=== PATIENT | male | born 1960 | race Native Hawaiian/Other Pacific Islander ===

== ENCOUNTER 2016-11-19 15:13 | Day surgery (SDC) | payer MEDICAID ==
[~2016-11-19] VITALS: Ht 170.2 cm; Wt 119.9 kg
[~2016-11-19 15:13] MED LIST: AMLO5TAB22 PO; ATOR40TA PO; LISI40TA PO; LOSA50TA PO; MEDR4PAK3 PO
[2016-11-19] MEDS ORDERED: NS 1000P @30 MLS/HR (KVO) IV SCH (16:00)
[2016-11-19 16:45] VITALS: BP 142/72; PULSE 71; RESP 18; TEMP 98; O2SAT 96
[2016-11-19] MEDS ORDERED: IOHEXOL 350 MG/ML 100 ML BTL (for Cath Lab) OTHER ONE (17:10)
[2016-11-19 17:14] LABS: AUTOMATED NEUTROPHIL # 3.3 TH/MM3 (1.8-7.7); BASOPHIL % 0.8 % (0.0-2.0); EOSINOPHIL # 0.2 TH/MM3 (0-0.4); EOSINOPHIL % 3.1 % (0.0-4.0); HEMATOCRIT 35.9 % (39.0-51.0); HEMO FLAGS DIFF FINAL; LYMPH % 31.3 % (9.0-44.0); LYMPHOCYTE # 1.8 TH/MM3 (1.0-4.8); MEAN CELL VOLUME 80.8 FL (80.0-100.0); MEAN CORPUSCULAR HEMOGLOBIN 27.3 PG (27.0-34.0); MEAN CORPUSCULAR HGB CONC 33.8 % (32.0-36.0); MONO % 8.4 % (0.0-8.0); NEUT % 56.4 % (16.0-70.0); PLATELET COUNT 199 TH/MM3 (150-450); RED BLOOD COUNT 4.44 MIL/MM3 (4.50-5.90); RED CELL DISTRIBUTION WIDTH 16.1 % (11.6-17.2); WHITE BLOOD COUNT 5.8 TH/MM3 (4.0-11.0)
[2016-11-19] MEDS ORDERED: LOSA100T PO (17:17)
[2016-11-19] MEDS ORDERED: SERT-129 PO (17:17)
[2016-11-19] MEDS ORDERED: LIPI40TA PO (17:17)
[2016-11-19] MEDS ORDERED: BUPR150CR PO (17:17)
[2016-11-19] MEDS ORDERED: ZIPR1CAP8 PO (17:17)
[2016-11-19] MEDS ORDERED: BENZ0.5T PO (17:17)
[2016-11-19] MEDS ORDERED: CHLO25TA2 PO (17:17)
[2016-11-19] MEDS ORDERED: PRAZ5CAP PO (17:17)
[2016-11-19] MEDS ORDERED: HEPARIN-NS/PF INJ 500 ML ONE ×2 (17:18→17:24)
[2016-11-19] MEDS ORDERED: NITROGLYCERIN INJ 5 ML ONE (17:24)
[2016-11-19] MEDS ORDERED: MIDAZOLAM HCL 2 MG/2 ML VIAL ONE (17:24)
[2016-11-19] MEDS ORDERED: VERAPAMIL HCL 5 MG/2 ML VIAL ONE (17:24)
[2016-11-19] MEDS ORDERED: HEPARIN SODIUM - IV 10,000 UNITS/10 ML VIAL ONE (17:25)
[2016-11-19 17:27] LABS: APTT (PATIENT) 25.4 SEC (24.3-30.1); PROTHROMBIN TIME - PATIENT 10.7 SEC (9.8-11.6)
[2016-11-19 17:33] LABS: BICARBONATE 28.3 MEQ/L (21.0-32.0); POTASSIUM 3.1 MEQ/L (3.5-5.1)
--- NOTE | 2016-11-19 18:07 | CATHPROC ---
[employer] HIS Report Study Information Study Number Admission Scheduled Start Study Start [id number] Nov 19 2016 3:13PM 11/19/2016 Nov 19 2016 5:14PM [facility] Service Cardiac Catheterization Admit Source Facility Department Other [facility] - Business Teacher Physician and Clinical Staff Initial Theresa Flores Card FeederStuart Ayala RN Card Feeder Marge Eagle,ANA MARÍARMelani Other cathlab, cathlab Recorder Carin Vergara,SUPERVISOR PREPRESS TECH2 Scrub Jessica Montero,RT(R) Procedures Performed Procedure Location (Site) Vessel Name Coronary Angiograms LCA Left Coronary Coronary Angiograms RCA Right Coronary L Heart Cath Equipment Time Filter Tank Tender Helper Description Size Mfg Part Number Used/Scraped TRANSDUCER, TRUWAVE [id number] 17:39 MENDEZ [employer] Around * Used W/STOCKCOCK *[id number]-21-2.5 17:41 [employer]. NEEDLE, PERCUTANEOUS ENTRY 21G X 2.5CM Used *[id number] 17:39 [employer] PACK, CCL CUSTOM * Used *[id number] 17:39 [employer] SUPPORT, ARTERIAL ADULT 22181 Used BAND, RADIAL COMPRESSION TR [id number] 17:54 [employer] MED[employer] 29CM Used LARGE 29 *[id number] 17:39 [employer] WIRE, EXCHANGE 260CM 3MMJ 260CM Used *[id number] 17:39 NAMIC MANIFOLD, 4 PORT * Used *[id number] 17:39 [employer]COMED OMNIPAQUE, 350 MG, 150ML 150ML [id number] Used [id number] 17:39 MILES MEDICAL BLANKET,WARM AIR CCL * Used *[id number] CATHETER, FR5 OPTITORQUE [id number] 17:40 [employer] FR 5 Used RADIAL TIG 4.0 *[id number] SHEATH, FR6 TRANSRADIAL [id number] 17:39 [employer] FR 6 Used SLENDER 10CM *[id number] Equipment Model, Serial, Lot Number and Expiration Data Description Model Number Serial Number Lot Number Expiration Date NEEDLE, PERCUTANEOUS ENTRY [id number] 02-25-2020 History: Allergies Allergy Reaction No Known Allergies History: Risk Factors Family History of Hypertension Dyslipidemia Previous HI Previous Heart Failure Premature CAD Yes Yes No No No Prior Valve Prior PCI Prior CABG Surgery No No No Cerebrovascular Peripheral Artery Chronic Lung On Dialysis Diabetes Disease Disease Disease No No No No No History: Risk Factors Selection Items Obesity History: Symptoms/Diagnosis Selection Items Chest pain History: Stress Tests Stress or Imaging Studies Performed Yes Standard Exercise Stress Test No Stress Echo No Stress Test SPECT No Stress Test CMR Stress Test CMR Result Stress Test CMR Ischemia Risk/Extent Yes Positive Low Cardiac CTA Coronary Calcium Score No No History: Other Disease Selection Items Depression HTN History: Other Current Smoker No Labs Hgb (g/dl) Hct (%) RBC (MIL/MM3) WBC (l/cumm) Platelets (thousands) 11.60-17.00 35.00-51.00 4.00-5.90 4.00-11.00 150.00-450.00 12.1 35.9 4.4 5.8 199 Glucose (mg/dl) BUN (mg/dl) Creatinine (mg/dl) BUN:Creatinine (1:x) 74.00-106.00 7.00-18.00 0.50-1.30 10.00-20.00 99 26 1.2 21.7 Na (meq/l) K (meq/l) Cl (meq/l) CO2 (mmol/L) Ca (mg/dl) 136.00-145.00 3.50-5.10 98.00-107.00 21.00-32.00 8.50-10.10 137 3.1 102 28.3 9.2 PT (sec) PTT (sec) INR (PTT:PT) 9.80-11.60 24.30-30.10 0.90-1.10 10.7 25.4 1 Medication Medication Total Dose (Bolus/Oral) Medication Total Dosage/Unit 1% XYLOCAINE 10 mL FENTANYL 50 mcg HEPARIN 6000 units RADIAL COCKTAIL 5 mL (Bolus) VERSED 2 mg Medications (Bolus/Oral) Medication Time Given Dosage/Unit Administered By Reason VERSED 11/19/2016 5:38:59 PM 2 mg Rittenour, Marge 2 mg VERSED given in lab by Marge Eagle BSRN in Left Arm via Peripheral IV. Ordered by Keaton Hicks. FENTANYL 11/19/2016 5:40:40 PM 50 mcg Rittenour, Marge 50 mcg FENTANYL given in lab by Marge Eagle BSRN in Left Arm via Peripheral IV. Ordered by Theresa Pimentel. 1% XYLOCAINE 11/19/2016 5:44:32 PM 10 mL Theresa Hicks 10 mL 1% XYLOCAINE given in lab by Theresa Hicks in Right Radial via Subcutaneous. Ordered by Keaton Hicks. HEPARIN 11/19/2016 5:45:00 PM 6000 units Marge Eagle 6000 units HEPARIN given in lab by Marge Eagle BSRN in Left Arm via Peripheral IV. Ordered by Theresa Gao. RADIAL COCKTAIL 11/19/2016 5:45:01 PM 5 mL (Bolus) Theresa Hicks 5 mL (Bolus) RADIAL COCKTAIL given in lab by Theresa Hicks via Radial. Using [Solution Name]. Ordered by Theresa Hicks. 200mg nitro,2.5mg verapamil Medication (Drip) Medication Time Given Dosage/Unit Concentration/Unit Diluent (ml) Solution IV Solutions 11/19/2016 5:18:13 PM 0 mL (IV) 500 NaCl .9 IV Solutions given in lab by Stuart Boateng, RN in Left Arm via Peripheral IV. Pump/Drip Flow = 20 ml /hr using NaCl .9. Ordered by Theresa Hicks. Initial Case Assessment Cardiovascular HR NIBP 75 148/85 Edema Present Skin color Skin None Normal Warm Dry Circulatory - Right Pulses Dorsalis Pedis Femoral 2 2 Scale (0,1,2,3,4,d) Circulatory - Left Pulses Dorsalis Pedis Femoral 2 2 Scale (0,1,2,3,4,d) Neurological State Oriented to time-place- Alert Moves all extremities person Respiration - General Respiration Rate SpO2 (%) (B/min) 13 95 Final Case Assessment Cardiovascular HR NIBP 66 127/76 Edema Present Skin color Skin None Normal Warm Dry Circulatory - Right Pulses Dorsalis Pedis Femoral 2 2 Scale (0,1,2,3,4,d) Circulatory - Left Pulses Dorsalis Pedis Femoral 2 2 Scale (0,1,2,3,4,d) Neurological State Oriented to time-place- Alert Moves all extremities person Respiration - General Respiration Rate SpO2 (%) (B/min) 13 92 Chronological Log Time Study Chronological Log 17:10:49 Patient arrived via Bed. Vitals capture started with the following parameters, Patient=Adult, Interval=5 min, Initial Pr cennom=286 mmHg, 17:14:20 Deflation Rate=5 mmHg 17:14:58 HR=64 bpm, IVXI=259/85 mmhg, SpO2=96.0 %, Resp=13 B/min, Pain=0, Dash=10, Verde=2 17:17:58 Patient Name, D.O.B, / Armband Verified By R.N. 17:18:01 Consent signed by the physician and the patient and verified by the Business Teacher staff. 17:18:02 Pre-op and post- op instructions given; patient acknowledges understanding of instructions. 17:18:04 Patient has been NPO for More than 6Hrs. 17:18:05 Skin Breakdown- 17:18:06 Patient Warmer Placed on the Table. 17:18:11 Benjamin Prominences Protected 17:18:12 A # 20 IV was noted in the Upper Arm (left). Grade = 0 IV Solutions given in lab by Stuart Boateng RN in Left Arm via Peripheral IV. Pump/Drip Flow = 20 ml/hr using NaCl .9. 17:18:13 Ordered by Theresa Hicks. 17:18:14 History and physical on the chart or being dictated. Assessment: Initial Case, HR=75 BPM, EEDZ=142/85 mmhg, Edema=None, Color=Normal, Skin = Warm, D ry Right Pulses: Cheng Ped=2, Femoral=2 17:18:15 Left Pulses: Cheng Ped=2, Femoral=2 Neurological: State=Alert, Ox3, PIERCE Respiration: Resp=13 B/min, SpO2=95 % 17:19:59 HR=65 bpm, OKGK=129/81 mmhg, SpO2=93.0 %, Resp=14 B/min, Pain=0, Dash=10, Verde=2 17:25:00 HR=64 bpm, PKND=239/83 mmhg, SpO2=95 %, Resp=13 B/min, Pain=0, Dash=10, Verde=2 17:29:59 HR=64 bpm, KUKM=928/79 mmhg, SpO2=96.0 %, Resp=13 B/min, Pain=0, Dash=10, Verde=2 17:30:14 Reference ECG taken 17:30:41 Bilateral groins prepped with 2% chlorhexidine, and with a 3 min. waiting time. 17:35:00 HR=66 bpm, OSRH=802/80 mmhg, SpO2=94.0 %, Resp=14 B/min, Pain=0, Dash=10, Verde=2 17:36:16 Pressure channel 1 zeroed. Time Out. Correct patient, correct procedure,correct physician, power injector not loaded with contrast with surgical 17:38:19 team present. Time Out Concurred by , individual staff in procedure 17:38:27 Case Start 17:38:59 2 mg VERSED given in lab by Marge Eagle BSRN in Left Arm via Peripheral IV. Ordered Theresa Trujillo. 17:39:59 HR=70 bpm, XBHE=424/86 mmhg, SpO2=95.0 %, Resp=15 B/min, Pain=0, Dash=10, Verde=2 17:40:40 50 mcg FENTANYL given in lab by Marge Eagle BSRN in Left Arm via Peripheral IV. Order ed by Theresa Hicks. 17:44:32 10 mL 1% XYLOCAINE given in lab by Theresa Hicks in Right Radial via Subcutaneous. Ordered Theresa Trujillo. 17:44:44 Access site was Radial Artery. 17:45:00 HF=617 bpm, TLBU=642/76 mmhg, SpO2=88.0 %, Resp=20 B/min, Pain=0, Dash=10, Verde=2 17:45:00 6000 units HEPARIN given in lab by Marge Eagle BSRN in Left Arm via Peripheral IV. Or dered by Theresa Hicks. A SHEATH, FR6 TRANSRADIAL SLENDER 10CM FR 6 was advanced into the Fem Art (right) using the Mod ified 17:45:00 Seldinger technique. 5 mL (Bolus) RADIAL COCKTAIL given in lab by Theresa Hicks via Radial. Using [Solution Name]. Or dered by Kurt 17:45:01 Theresa. 200mg nitro,2.5mg verapamil A CATHETER, FR5 OPTITORQUE RADIAL TIG 4.0 FR 5 was advanced over a wire. OMNIPAQUE, 350 MG, 150 ML 150ML 17:45:42 was used for injections. Recorded Pressure: LV, HR=74, Condition=Condition 1 17:47:56 (Left Ventricle) LV 102/5/9 Recorded Pressure: LV, Ao, HR=71, Condition=Condition 1 17:48:36 (Left Ventricle) LV 85/3/7, (Aorta) Ao 88/62/76 Recorded Pressure: Ao, HR=70, Condition=Condition 1 17:49:06 (Aorta) Ao 95/66/80 17:49:12 The LCA was injected and visualized at various angles. OMNIPAQUE, 350 MG, 150ML 150ML used . 17:50:01 HR=66 bpm, QDMB=251/63 mmhg, SpO2=92 %, Resp=20 B/min, Pain=0, Dash=10, Verde=2 17:51:31 The RCA was injected and visualized at various angles. OMNIPAQUE, 350 MG, 150ML 150ML used . Recorded Pressure: AoArh, HR=66, Condition=Condition 1 17:52:10 (Aortic Arch) AoArh 98/63/80 17:52:39 Catheter was removed 17:52:53 Case End 17:52:59 Catheter(s) removed without difficulty Radial Compression Device Used. 13 mLs of air placed in BAND, RADIAL COMPRESSION TR LARGE 29 29 CM. Affected 17:53:04 hand 97 % O2 saturation. 17:55:00 HR=66 bpm, DNDK=693/67 mmhg, SpO2=91.0 %, Resp=18 B/min, Pain=0, Dash=10, Verde=2 17:59:59 HR=66 bpm, CMAB=942/76 mmhg, SpO2=92.0 %, Resp=16 B/min, Pain=0, Dash=10, Verde=2 Assessment: Final Case, HR=66 BPM, NHSX=696/76 mmhg, Edema=None, Color=Normal, Skin = Warm, Dry Right Pulses: Cheng Ped=2, Femoral=2 18:00:10 Left Pulses: Cheng Ped=2, Femoral=2 Neurological: State=Alert, Ox3, PIERCE Respiration: Resp=13 B/min, SpO2=92 % 18:00:35 Vitals capture stopped. 18:06:31 A Left Heart Cath was performed. 18:06:32 Patient moved to [facility] End Study - Contrast Media Used In Study Contrast Total Opened (mL) Total Used (mL) Total Wasted (mL) Omnipaque 40 40 0 End Study - Maximum Contrast Load Max Contrast Load (mL) 499.6 End Study - Radiation Exposure Fluoro Time (minutes) 2.6 End Study - Patient Disposition Complications Transferred To Telemetry Bed
[2016-11-19] MEDS ORDERED: LOSARTAN 50 MG TAB PO SCH (20:06)
[2016-11-19] MEDS ORDERED: PRAZOSIN HCL 5 MG CAP PO SCH (21:00)
--- NOTE | 2016-11-19 21:17 | MA ---
cc: DR. CORY MCCRACKEN,SAMMY Jimenes M.D. DATE: 11/19/2016 INDICATION A 56-year-old white male with several cardiac risk factors who was found to have a questionable nuclear stress test and had persistent chest pain. PROCEDURES PERFORMED 1. Left cardiac catheterization via right radial approach. 2. Selective coronary angiography. 3. Left ventricular angiogram. PROCEDURE IN DETAIL 1% lidocaine to right wrist. Micropuncture needle into radial artery, later exchanged for a 6-Trinidadian sheath. Diagnostic angiography performed with a 5-Trinidadian 4-0 tiger catheter. The patient tolerated the procedure well and left the laboratory hemodynamically stable and chest pain free. At the end of the procedure, the radial sheath was removed and good hemostasis was gained with a radial band. HEMODYNAMICS The patient remained in normal sinus rhythm. Aortic pressure was 95/66 with a mean of 80 mmHg. Left ventricular pressure was 85/30 mmHg and there was no gradient across the aortic valve on pullback. MEDICATIONS 1. Versed 2 mg IV x1. 2. Fentanyl 50 mcg IV x1. 3. Verapamil 2.5 mg into intra-radial. 4. Nitroglycerin 200 mcg intra-radial. 5. Heparin 6000 units IV x1. ANGIOGRAPHY Left main with 0% stenosis. Left anterior descending artery septal and diagonal branches with 0% stenosis. Large ramus intermedius branch with 0% stenosis. Circumflex artery and two small obtuse marginal branches with 0% stenosis. Dominant right coronary artery with 0% stenosis. The ventricular angiogram with preserved left ventricular systolic function and estimated ejection fraction of 65%. IMPRESSION 1. Atypical chest pain of noncardiac origin. 2. Angiographically normal coronary arteries. 3. Preserved left ventricular systolic function. RECOMMENDATIONS Continue risk factor modification with emphasis on cardiac diet, regular exercise and weight loss. MD INNA Velez/JUNG /6:07 PM /8:58 PM
--- NOTE | 2016-11-20 12:55 | EKG ---
Date Performed: 11/19/2016 Time Performed: 16:49:38 PTAGE: 56 years EKG: Sinus rhythm Leftward axis Anterior T wave changes are nonspecific Borderline ECG PREVIOUS TRACING : 02/07/2016 08.18 DOCTOR: Luis Aguilar Interpretating Date/Time 11/20/2016 12:50:56
== END 2016-11-19 21:00 | disposition home or self-care (01) ==
LOC: HDOC 15:13 → HDIC 15:13 → HDOC 21:00
PROVIDERS: ATTEND Specialist
DX: R07.89 Other chest pain (principal); I10 Essential (primary) hypertension; E78.00 Pure hypercholesterolemia, unspecified
CPT/HCPCS: 80048; 85025; 85610; 85730; 93005; 93458; C1769; C1893; J1644; J2250; J3010; Q9967

== ENCOUNTER 2017-01-24 03:25 | Emergency (ER) | payer MEDICAID ==
[~2017-01-24] VITALS: Ht 154.9 cm; Wt 100.0 kg
[~2017-01-24 03:25] MED LIST changes: -AMLO5TAB22 PO; -ATOR40TA PO; +BENZ0.5T PO; +BUPR150CR PO; +CHLO25TA2 PO; +LIPI40TA PO; -LISI40TA PO; +LOSA100T PO; -LOSA50TA PO; -MEDR4PAK3 PO; +PRAZ5CAP PO; +SERT-129 PO; +ZIPR1CAP8 PO
[2017-01-24 03:29] VITALS: BP 138/69; PULSE 100; RESP 34; TEMP 98; O2SAT 98
[2017-01-24] MEDS ORDERED: SODIUM CHLOR 0.9% 1000 ML INJ 1,000 ML IV SCH (03:36)
[2017-01-24] MEDS ORDERED: HYDROmorphone HCL PF 1 MG/ML VIAL ONE (03:37)
[2017-01-24] MEDS ORDERED: LORazepam 2 MG/ML VIAL IV PUSH ONE ×2 (03:45→09:30)
[2017-01-24] MEDS ORDERED: SODIUM CHLORIDE 0.9% FLUSH 5 ML FLUSH IV FLUSH PRN (03:45)
[2017-01-24] MEDS ORDERED: ONDANSETRON HCL 4 MG/2 ML VIAL ONE (03:51)
[2017-01-24 04:00] LABS: AUTOMATED NEUTROPHIL # 3.3 TH/MM3 (1.8-7.7); BASOPHIL % 0.5 % (0.0-2.0); EOSINOPHIL # 0.1 TH/MM3 (0-0.4); EOSINOPHIL % 1.4 % (0.0-4.0); HEMATOCRIT 35.6 % (39.0-51.0); HEMO FLAGS DIFF FINAL; LYMPH % 47.6 % (9.0-44.0); LYMPHOCYTE # 3.9 TH/MM3 (1.0-4.8); MEAN CELL VOLUME 80.3 FL (80.0-100.0); MEAN CORPUSCULAR HGB CONC 33.7 % (32.0-36.0); MONO % 9.6 % (0.0-8.0); NEUT % 40.9 % (16.0-70.0); PLATELET COUNT 224 TH/MM3 (150-450); RED BLOOD COUNT 4.43 MIL/MM3 (4.50-5.90); RED CELL DISTRIBUTION WIDTH 16.3 % (11.6-17.2); WHITE BLOOD COUNT 8.2 TH/MM3 (4.0-11.0)
[2017-01-24] MEDS ORDERED: ONDANSETRON HCL 4 MG/2 ML VIAL IV ONE (04:00)
--- NOTE | 2017-01-24 04:02 | RADRPT ---
EXAM DATE/TIME: 01/24/2017 03:38 [facility] COMPARISON: No previous studies available for comparison. INDICATIONS : Chest pain MEDICAL HISTORY : Hypertension. Hypercholesterolemia. SURGICAL HISTORY : Inguinal hernia repair. ENCOUNTER: Initial ACUITY: 1 day PAIN SCORE: Non-responsive. LOCATION: Bilateral chest FINDINGS: A single view of the chest demonstrates the lungs to be symmetrically aerated without evidence of mas s, infiltrate or effusion. Mild basilar atelectasis. The cardiomediastinal contours are unremarkable. Osseous structures are intact. CONCLUSION: 1. Basilar atelectasis. No effusion or pneumothorax. Ghanshyam De Leon MD on January 24, 2017 at 4:00 Board Certified Radiologist. This report was verified electronically.
--- NOTE | 2017-01-24 04:04 | RADRPT ---
EXAM DATE/TIME: 01/24/2017 03:52 [facility] COMPARISON: CT BRAIN W/O CONTRAST, March 30, 2015, 14:58. INDICATIONS : Dizziness. RADIATION DOSE: 40.85 CTDIvol (mGy) MEDICAL HISTORY : Hypertension. Congestive heart failure. SURGICAL HISTORY : None. ENCOUNTER: Initial ACUITY: 1 day PAIN SCALE: 0/10 LOCATION: cranial TECHNIQUE: Multiple contiguous axial images were obtained of the head. Using automated exposure control and adj ustment of the mA and/or kV according to patient size, radiation dose was kept as low as reasonably a chievable to obtain optimal diagnostic quality images. DICOM format image data is available electro nically for review and comparison. FINDINGS: CEREBRUM: The ventricles are normal for age. No evidence of midline shift, mass lesion, hemorrhage or acute in farction. No extra-axial fluid collections are seen. POSTERIOR FOSSA: The cerebellum and brainstem are intact. The 4th ventricle is midline. The cerebellopontine angle i s unremarkable. EXTRACRANIAL: The visualized portion of the orbits is intact. SKULL: The calvaria is intact. No evidence of skull fracture. CONCLUSION: 1. No acute intracranial abnormalities. Ghanshyam De Leon MD on January 24, 2017 at 4:01 Board Certified Radiologist. This report was verified electronically.
[2017-01-24 04:10] LABS: APTT (PATIENT) 22.2 SEC (24.3-30.1); PROTHROMBIN TIME - PATIENT 10.7 SEC (9.8-11.6)
[2017-01-24 04:37] LABS: ALT (GPT) 55 U/L (12-78); ANION GAP 13 MEQ/L (5-15); AST (GOT) 22 U/L (15-37); BLOOD UREA NITROGEN 19 MG/DL (7-18); CHLORIDE 104 MEQ/L (98-107); GLOMERULAR FILTRATION RATE 62 ML/MIN (>89); SODIUM (NA) 139 MEQ/L (136-145)
[2017-01-24 04:40] LABS: ALKALINE PHOSPHATASE 123 U/L (45-117); TOTAL BILIRUBIN ADULT 0.3 MG/DL (0.2-1.0)
[2017-01-24] MEDS ORDERED: IOHEXOL 350 MG/ML 10 ML VIAL (for RAD DIAG) IVCONTRAST ONE (05:09)
[2017-01-24 05:12] VITALS: BP 143/59; PULSE 64; RESP 14; O2SAT 95
--- NOTE | 2017-01-24 05:47 | RADRPT ---
EXAM DATE/TIME: 01/24/2017 04:58 [facility] COMPARISON: No previous studies available for comparison. INDICATIONS : Vomiting. IV CONTRAST: 100 cc Omnipaque 350 (iohexol) IV ORAL CONTRAST: No oral contrast ingested. RADIATION DOSE: 13.22 CTDIvol (mGy) MEDICAL HISTORY : Hypertension. SURGICAL HISTORY : Hernia repair. ENCOUNTER: Initial ACUITY: 1 day PAIN SCALE: 0/10 LOCATION: abdomen TECHNIQUE: Volumetric scanning of the abdomen and pelvis was performed. Using automated exposure control and ad justment of the mA and/or kV according to patient size, radiation dose was kept as low as reasonably achievable to obtain optimal diagnostic quality images. DICOM format image data is available electro nically for review and comparison. FINDINGS: Minimal basilar atelectasis. Fatty liver. Spleen, left adrenal, kidneys and pancreas unremarkable. Th ere is a 3.1 cm right adrenal mass. Previous cholecystectomy. No free fluid. No bowel obstruction. No adenopathy. No free air. Small hiatal hernia. CONCLUSION: 1. 3 x 1 cm right adrenal mass statistically most likely an adenoma.. No acute findings within the ab domen and pelvis. Previous cholecystectomy. Ghanshyam De Leon MD on January 24, 2017 at 5:41 Board Certified Radiologist. This report was verified electronically.
[2017-01-24] MEDS ORDERED: PROCHLORPERAZINE INJ 10 MG/2 ML VIAL IV PUSH ONE (06:45)
[2017-01-24] MEDS ORDERED: diphenhydrAMINE HCL 50 MG/ML VIAL IV PUSH ONE (06:45)
[2017-01-24] MEDS ORDERED: KETOROLAC TROMETHAMINE 30 MG/ML (IVP) VIAL IV PUSH ONE (06:45)
[2017-01-24] MEDS ORDERED: PROPARACAINE HCL 0.5% OPHT SOLN 15 ML BTL EACH EYE ONE (06:45)
[2017-01-24 06:54] VITALS: BP 133/74; PULSE 59; RESP 18; O2SAT 95
--- NOTE | 2017-01-24 06:54 | PD ---
HPI Chief Complaint: Chest Pain Time Seen by Provider: 03:36 Travel History International Travel<30 days: No Contact w/Intl Traveler<30days: No Traveled to known affect area: No History of Present Illness HPI This is a 56-year-old male who has a history of hypertension who presents to the emergency department with multiple complaints. History is very limited as the patient is not Kittitian speaking and speaks primarily Portuguese. Evidently he woke up in the middle the night with nausea, headache, dizziness and pain all over his body. He did tell EMS that he had chest pain. PFSH Past Medical History Depression: Yes Heart Rhythm Problems: No Cardiac Catheterization: Yes Cardiovascular Problems: Yes (CHF) High Cholesterol: Yes Chest Pain: Yes Congestive Heart Failure: Yes Diabetes: No Diminished Hearing: No Glaucoma: Yes Hypertension: Yes Respiratory: Yes Past Surgical History Abdominal Surgery: Yes (HERNIA REPAIR) Coronary Artery Bypass Graft: No Social History Alcohol Use: No Tobacco Use: No Substance Use: No Allergies-Medications (Allergen,Severity, Reaction): Coded Allergies: No Known Allergies (Unverified , 01/24/17) Reported Meds & Prescriptions Reported Meds & Active Scripts Active Reported Lipitor (Atorvastatin Calcium) 40 Mg Tab 40 Mg PO HS Losartan (Losartan Potassium) 100 Mg Tab 100 Mg PO DAILY Chlorthalidone 25 Mg Tab 25 Mg PO DAILY Prazosin (Prazosin HCl) 5 Mg Cap 5 Mg PO HS Ziprasidone 40 Mg Cap 40 Mg PO BID Sertraline (Sertraline HCl) 100 Mg Tab 100 Mg PO DAILY Benztropine (Benztropine Mesylate) 0.5 Mg Tab 2 Mg PO HS Wellbutrin SR 12 HR (Bupropion HCl) 150 Mg Tab 150 Mg PO Q12HR Review of Systems ROS Limitations: Language Barrier Physical Exam Narrative GENERAL: Moaning in discomfort SKIN: Focused skin assessment warm and dry. HEAD: Atraumatic. Normocephalic. EYES: Pupils equal and round. No injection or drainage. ENT: Moist mucous membranes NECK: Trachea midline. CARDIOVASCULAR: Regular rate and rhythm. No murmur appreciated. RESPIRATORY: Clear to auscultation. Breath sounds equal bilaterally. GASTROINTESTINAL: Abdomen soft, non-tender, nondistended. MUSCULOSKELETAL: No obvious deformities. NEUROLOGICAL: Awake and alert. No obvious cranial nerve deficits. Moving all extremities. Data Data Last Documented VS Vital Signs Date Time Temp Pulse Resp B/P (MAP) Pulse Ox O2 Delivery O2 Flow Rate FiO2 01/24/17 05:12 64 14 143/59 (87) 95 Room Air 01/24/17 03:29 98.0 Orders Orders Electrocardiogram (01/24/17 03:36) Complete Blood Count With Diff (01/24/17 03:36) Comprehensive Metabolic Panel (01/24/17 03:36) Prothrombin Time / Inr (Pt) (01/24/17 03:36) Act Partial Throm Time (Ptt) (01/24/17 03:36) Troponin I (01/24/17 03:36) Urinalysis - C+S If Indicated (01/24/17 03:36) Chest, Single Ap (01/24/17 03:36) Ct Brain W/O Iv Contrast(Rout) (01/24/17 03:36) Blood Glucose (01/24/17 03:36) Ecg Monitoring (01/24/17 03:36) Iv Access Insert/Monitor (01/24/17 03:36) Oximetry (01/24/17 03:36) Sodium Chloride 0.9% Flush (Ns Flush) (01/24/17 03:45) Sodium Chlor 0.9% 1000 Ml Inj (Ns 1000 M (01/24/17 03:36) Lipase (01/24/17 03:36) Lorazepam Inj (Ativan Inj) (01/24/17 03:45) Hydromorphone Pf Inj (Dilaudid Pf Inj) (01/24/17 03:37) Ondansetron Inj (Zofran Inj) (01/24/17 04:00) Ondansetron Inj (Zofran Inj) (01/24/17 03:51) Ct Abd/Pel W Iv Contrast(Rout) (01/24/17 ) Iohexol 350 Inj (Omnipaque 350 Inj) (01/24/17 05:09) Ketorolac Inj (Toradol Inj) (01/24/17 06:45) Prochlorperazine Inj (Compazine Inj) (01/24/17 06:45) Diphenhydramine Inj (Benadryl Inj) (01/24/17 06:45) Proparacaine 0.5% Opth Soln (Alcaine 0.5 (01/24/17 06:45) Labs Laboratory Tests Test 01/24/17 03:50 White Blood Count 8.2 TH/MM3 Red Blood Count 4.43 MIL/MM3 Hemoglobin 12.0 GM/DL Hematocrit 35.6 % Mean Corpuscular Volume 80.3 FL Mean Corpuscular Hemoglobin 27.0 PG Mean Corpuscular Hemoglobin Concent 33.7 % Red Cell Distribution Width 16.3 % Platelet Count 224 TH/MM3 Mean Platelet Volume 8.0 FL Neutrophils (%) (Auto) 40.9 % Lymphocytes (%) (Auto) 47.6 % Monocytes (%) (Auto) 9.6 % Eosinophils (%) (Auto) 1.4 % Basophils (%) (Auto) 0.5 % Neutrophils # (Auto) 3.3 TH/MM3 Lymphocytes # (Auto) 3.9 TH/MM3 Monocytes # (Auto) 0.8 TH/MM3 Eosinophils # (Auto) 0.1 TH/MM3 Basophils # (Auto) 0.0 TH/MM3 CBC Comment DIFF FINAL Differential Comment Prothrombin Time 10.7 SEC Prothromb Time International Ratio 1.0 RATIO Activated Partial Thromboplast Time 22.2 SEC Blood Urea Nitrogen 19 MG/DL Creatinine 1.22 MG/DL Random Glucose 183 MG/DL Total Protein 7.4 GM/DL Albumin 3.4 GM/DL Calcium Level 8.6 MG/DL Alkaline Phosphatase 123 U/L Aspartate Amino Transf (AST/SGOT) 22 U/L Alanine Aminotransferase (ALT/SGPT) 55 U/L Total Bilirubin 0.3 MG/DL Sodium Level 139 MEQ/L Potassium Level 3.0 MEQ/L Chloride Level 104 MEQ/L Carbon Dioxide Level 22.0 MEQ/L Anion Gap 13 MEQ/L Estimat Glomerular Filtration Rate 62 ML/MIN Troponin I LESS THAN 0.02 NG/ML Lipase 227 U/L [facility] Medical Decision Making Medical Screen Exam Complete: Yes Emergency Medical Condition: Yes Interpretation(s) afebrile, mild tachycardia, tachypnea no leukocytosis mild anemia mild hypokalemia troponin normal lipase 227 ekg: nsr, no st changes Differential Diagnosis Acute coronary syndrome, gastritis, pancreatitis, migraine headache, vertigo, glaucoma Narrative Course This is a 56-year-old male who is Portuguese speaking who presents to the emergency department with multiple nonspecific symptoms including dizziness, headache and pain all over his body. He is moaning in the emergency department. Initially he appears tachypneic and appears to be having a panic attack. He did vomit several times. Labs are obtained which were all reassuring. EKG was nonischemic. He had a cardiac catheterization in October which was normal. CT of the head is unremarkable. CT abdomen and pelvis is unremarkable. I think the language barrier really limits my ability to get to the bottom of was going on with this patient. I don't suspect an emergent etiology of his symptoms and he does have a history of psychiatric disease which I suspect may be contributing to his presentation. I think it would be reasonable to observe the patient until we can get a formal translation from him as to what going on. If he really has a headache and dizziness he probably can be discharged on symptomatic management as they've done an extensive workup which has been reassuring. Fabiana Fierro MD Jan 24, 2017 06:54
[2017-01-24] MEDS ORDERED: POTASSIUM CHLORIDE 25 MEQ EFFERVESCENT TAB PO ONE (07:00)
--- NOTE | 2017-01-24 08:21 | EKG ---
Date Performed: 01/24/2017 Time Performed: 03:40:14 PTAGE: 56 years EKG: Sinus rhythm LEFT AXIS DEVIATION ABNORMAL R WAVE PROGRESSION ABNORMAL ECG PREVIOUS TRACING : 11/19/2016 16.49 No significant change from previous tracing noted. DOCTOR: Ricardo Vázquez Interpretating Date/Time 01/24/2017 08:20:09
[2017-01-24 09:27] LABS: BLOOD, URINE NEG (NEG); GLUCOSE,URINE NEG (NEG); HYALINE CAST, URINE 1 /lpf (RARE); KETONE, URINE NEG (NEG); NITRITE,URINE NEG (NEG); PH, URINE 6.5 (5.0-8.5); URINE COLOR LIGHT-YELLOW (YELLW/STRAW)
[2017-01-24 09:28] LABS: COMMENT (UR) CATH-CULT NOT IND; CULTURE IF INDICATED CATH CULTURE NOT IND
--- NOTE | 2017-01-24 09:29 | PD ---
Physical Exam Date Seen by Provider: Jan 24, 2017 Narrative This patient was checked out to me at 7 AM basically pending the ability to do a good history. The patient is [place] and speaks Thai. Thai translation was not available until 9 AM. Fortunately, a friend of his is now here and the friend speaks both Thai and [place]ian. I have used the friend as an property and casualty insurance agent. Basically, this patient took his usual antihypertensive and antidepressant medications at about 10 PM last night and then went to bed. He subsequently awakened from sleep with a headache which was associated with dizziness and vomiting. He has had headaches like this before. He was treated in the emergency department with a number of medicines including Compazine and Benadryl. He states that his headache and dizziness have improved. He does still have some residual symptoms. He reports that the dizziness is exacerbated by movement. I get a sense that it is a vertigo type dizziness. The patient has already been fully evaluated by Dr. Fierro. No further testing is needed. This patient is awake and alert and is neurologically intact. Data Data Last Documented VS Vital Signs Date Time Temp Pulse Resp B/P (MAP) Pulse Ox O2 Delivery O2 Flow Rate FiO2 01/24/17 06:54 59 18 133/74 (93) 95 Nasal Cannula 2.00 01/24/17 03:29 98.0 Orders Orders Electrocardiogram (01/24/17 03:36) Complete Blood Count With Diff (01/24/17 03:36) Comprehensive Metabolic Panel (01/24/17 03:36) Prothrombin Time / Inr (Pt) (01/24/17 03:36) Act Partial Throm Time (Ptt) (01/24/17 03:36) Troponin I (01/24/17 03:36) Urinalysis - C+S If Indicated (01/24/17 03:36) Chest, Single Ap (01/24/17 03:36) Ct Brain W/O Iv Contrast(Rout) (01/24/17 03:36) Blood Glucose (01/24/17 03:36) Ecg Monitoring (01/24/17 03:36) Iv Access Insert/Monitor (01/24/17 03:36) Oximetry (01/24/17 03:36) Sodium Chloride 0.9% Flush (Ns Flush) (01/24/17 03:45) Sodium Chlor 0.9% 1000 Ml Inj (Ns 1000 M (01/24/17 03:36) Lipase (01/24/17 03:36) Lorazepam Inj (Ativan Inj) (01/24/17 03:45) Hydromorphone Pf Inj (Dilaudid Pf Inj) (01/24/17 03:37) Ondansetron Inj (Zofran Inj) (01/24/17 04:00) Ondansetron Inj (Zofran Inj) (01/24/17 03:51) Ct Abd/Pel W Iv Contrast(Rout) (01/24/17 ) Iohexol 350 Inj (Omnipaque 350 Inj) (01/24/17 05:09) Ketorolac Inj (Toradol Inj) (01/24/17 06:45) Prochlorperazine Inj (Compazine Inj) (01/24/17 06:45) Diphenhydramine Inj (Benadryl Inj) (01/24/17 06:45) Proparacaine 0.5% Opth Soln (Alcaine 0.5 (01/24/17 06:45) Potassium Chloride Eff (K-Lyte Cl Eff) (01/24/17 07:00) Lorazepam Inj (Ativan Inj) (01/24/17 09:30) Sodium Chlor 0.9% 1000 Ml Inj (Ns 1000 M (01/24/17 09:30) Labs Laboratory Tests Test 01/24/17 03:50 01/24/17 09:09 White Blood Count 8.2 TH/MM3 Red Blood Count 4.43 MIL/MM3 Hemoglobin 12.0 GM/DL Hematocrit 35.6 % Mean Corpuscular Volume 80.3 FL Mean Corpuscular Hemoglobin 27.0 PG Mean Corpuscular Hemoglobin Concent 33.7 % Red Cell Distribution Width 16.3 % Platelet Count 224 TH/MM3 Mean Platelet Volume 8.0 FL Neutrophils (%) (Auto) 40.9 % Lymphocytes (%) (Auto) 47.6 % Monocytes (%) (Auto) 9.6 % Eosinophils (%) (Auto) 1.4 % Basophils (%) (Auto) 0.5 % Neutrophils # (Auto) 3.3 TH/MM3 Lymphocytes # (Auto) 3.9 TH/MM3 Monocytes # (Auto) 0.8 TH/MM3 Eosinophils # (Auto) 0.1 TH/MM3 Basophils # (Auto) 0.0 TH/MM3 CBC Comment DIFF FINAL Differential Comment Prothrombin Time 10.7 SEC Prothromb Time International Ratio 1.0 RATIO Activated Partial Thromboplast Time 22.2 SEC Blood Urea Nitrogen 19 MG/DL Creatinine 1.22 MG/DL Random Glucose 183 MG/DL Total Protein 7.4 GM/DL Albumin 3.4 GM/DL Calcium Level 8.6 MG/DL Alkaline Phosphatase 123 U/L Aspartate Amino Transf (AST/SGOT) 22 U/L Alanine Aminotransferase (ALT/SGPT) 55 U/L Total Bilirubin 0.3 MG/DL Sodium Level 139 MEQ/L Potassium Level 3.0 MEQ/L Chloride Level 104 MEQ/L Carbon Dioxide Level 22.0 MEQ/L Anion Gap 13 MEQ/L Estimat Glomerular Filtration Rate 62 ML/MIN Troponin I LESS THAN 0.02 NG/ML Lipase 227 U/L Urine Color LIGHT-YELLOW Urine Turbidity HAZY Urine pH 6.5 Urine Specific [place] 1.032 Urine Protein NEG mg/dL Urine Glucose (UA) NEG mg/dL Urine Ketones NEG mg/dL Urine Occult Blood NEG Urine Nitrite NEG Urine Bilirubin NEG Urine Urobilinogen LESS THAN 2.0 MG/DL Urine Leukocyte Esterase NEG Urine RBC 1 /hpf Urine WBC 1 /hpf Urine Hyaline Casts 1 /lpf Microscopic Urinalysis Comment CATH-CULT NOT IND MDM Medical Record Reviewed: Yes (this patient has been seen here in the past with similar symptoms. He has also been seen here in the past for chest pain and had a normal cardiac catheterization just a couple of months ago.) Supervised Visit with VINICIUS: No Differential Diagnosis Differential diagnosis of headache includes but is not limited to migraine, muscle contraction headache, brain tumor, brain bleed Narrative Course Patient was seen and evaluated by Dr. Fierro during the night. The patient's history was very unclear to her because of a language barrier. Multiple tests were done including CT of the head, chest x-ray and CT of the abdomen and pelvis. They were all unremarkable. Cardiac workup was also done and was unremarkable. In the meantime, the patient was treated with Ativan, Dilaudid and Zofran early in his course here. He was subsequently treated with Toradol, Benadryl and Compazine for the headache and dizziness. His symptoms are improved. He is still complaining with some dizziness. My experience has been that Valium works quite nicely for vertigo. However, IV Valium is apparently not available here. So, I have ordered an additional dose of IV Ativan. My plan is to discharge the patient going IV Ativan. At this point, the patient has been adequately evaluated and observed to rule out an acute process. A better history obtainable when his friend got here. This patient can now be safely discharged. Diagnosis Primary Impression: Headache Qualified Codes: G44.209 - Tension-type headache, unspecified, not intractable Additional Impressions: Dizziness Chest pain, atypical Anxiety Patient Instructions: Acute Headache (DC), Anxiety (DC), Dizziness (ED), General Instructions, Narcotic given in the ED Disposition: 01 DISCHARGE HOME Condition: Stable [facility] MD Jan 24, 2017 09:29
[2017-01-24] MEDS ORDERED: SODIUM CHLOR 0.9% 1000 ML INJ 1,000 ML IV ONE (09:30)
== END 2017-01-24 11:37 | disposition home or self-care (01) ==
LOC: NEPC 03:25
DX: R51 Headache (principal); R42 Dizziness and giddiness; R07.89 Other chest pain; R11.2 Nausea with vomiting, unspecified; R94.31 Abnormal electrocardiogram [ECG] [EKG]; R00.0 Tachycardia, unspecified; D64.9 Anemia, unspecified; E87.6 Hypokalemia; I10 Essential (primary) hypertension
CPT/HCPCS: 70450; 71010; 74177; 80053; 81001; 83690; 84484; 85025; 85610; 85730; 93005; 96361; 96374; 96375; 96376; 99285; J0780; J1170; J1200; J1885; J2060; J2405; J7030; Q9967

== ENCOUNTER 2017-06-10 08:11 | Emergency (ER) | payer MEDICAID ==
[~2017-06-10] VITALS: Ht 172.7 cm; Wt 118.0 kg
[2017-06-10 08:18] VITALS: BP 175/83; PULSE 76; RESP 16; TEMP 98.1; O2SAT 97
[2017-06-10 08:35] LABS: BILIRUBIN, URINE NEG (NEG); BLOOD, URINE NEG (NEG); GLUCOSE,URINE NEG (NEG); KETONE, URINE NEG (NEG); NITRITE,URINE NEG (NEG); PH, URINE 5.5 (5.0-8.5); URINE LEUKOCYTE ESTERASE NEG (NEG)
[2017-06-10 08:36] LABS: URINE COLOR YELLOW (YELLW/STRAW)
[2017-06-10 08:47] LABS: SQUAMOUS EPITHELIAL CELL URINE 0-5 /hpf (0-5)
[2017-06-10] MEDS ORDERED: IBUP1TAB5 PO (09:10)
[2017-06-10] MEDS ORDERED: KETOROLAC TROMETHAMINE 30 MG/ML (IVP) VIAL IV PUSH ONE (09:15)
[2017-06-10 09:38] LABS: AUTOMATED NEUTROPHIL # 5.4 TH/MM3 (1.8-7.7); BASOPHIL % 0.5 % (0.0-2.0); EOSINOPHIL # 0.1 TH/MM3 (0-0.4); EOSINOPHIL % 1.3 % (0.0-4.0); HEMATOCRIT 37.5 % (39.0-51.0); HEMOGLOBIN 12.2 GM/DL (13.0-17.0); LYMPH % 17.9 % (9.0-44.0); LYMPHOCYTE # 1.4 TH/MM3 (1.0-4.8); MEAN CELL VOLUME 83.4 FL (80.0-100.0); MEAN CORPUSCULAR HEMOGLOBIN 27.1 PG (27.0-34.0); MEAN CORPUSCULAR HGB CONC 32.5 % (32.0-36.0); MEAN PLATELET VOLUME 7.8 FL (7.0-11.0); MONO % 10.1 % (0.0-8.0); MONOCYTE # 0.8 TH/MM3 (0-0.9); NEUT % 70.2 % (16.0-70.0); PLATELET COUNT 211 TH/MM3 (150-450); RED CELL DISTRIBUTION WIDTH 14.8 % (11.6-17.2); WHITE BLOOD COUNT 7.7 TH/MM3 (4.0-11.0)
[2017-06-10 09:49] LABS: CALCIUM 8.7 MG/DL (8.5-10.1)
[2017-06-10 09:50] LABS: ALBUMIN 3.7 GM/DL (3.4-5.0); BICARBONATE 28.5 MEQ/L (21.0-32.0); GLUCOSE,RANDOM 144 MG/DL (74-106)
[2017-06-10 09:53] LABS: ALT (GPT) 32 U/L (12-78); AST (GOT) 20 U/L (15-37); GLOMERULAR FILTRATION RATE 40 ML/MIN (>89)
--- NOTE | 2017-06-10 09:53 | PD ---
HPI Chief Complaint: Edema Time Seen by Provider: 09:00 Travel History International Travel<30 days: No Contact w/Intl Traveler<30days: No Traveled to known affect area: No History of Present Illness HPI Patient is a 56 year old male [place] male who comes in with multiple complaints. He has been here multiple times for the same thing. He says he is specifically here for leg swelling and pain. He says it started in his right leg 2 days ago and was in his left leg since yesterday. He complains of chest pain, but says this has been the same for the past year. He denies SOB. He says he has had a cough with fever and chills. He has not taken anything for his symptoms. He says touching his legs make the pain worse. Severity is mild to moderate. PFSH Past Medical History Depression: Yes Heart Rhythm Problems: No Cardiac Catheterization: Yes Cardiovascular Problems: Yes (htn on meds) High Cholesterol: Yes Chest Pain: Yes Congestive Heart Failure: Yes Diabetes: No Diminished Hearing: No Glaucoma: Yes Hypertension: Yes Respiratory: Yes Tetanus Vaccination: > 5 Years Influenza Vaccination: No Past Surgical History Abdominal Surgery: Yes (HERNIA REPAIR) Appendectomy: Yes Coronary Artery Bypass Graft: No Social History Alcohol Use: No Tobacco Use: No Substance Use: No Allergies-Medications (Allergen,Severity, Reaction): Coded Allergies: No Known Allergies (Unverified Adverse Reaction, Unknown, 06/10/17) Reported Meds & Prescriptions Reported Meds & Active Scripts Active Reported Ibuprofen 400 Mg Tab 400 Mg PO DIRECTED Losartan (Losartan Potassium) 100 Mg Tab 100 Mg PO DAILY Review of Systems Except as stated in HPI: all other systems reviewed are Neg General / Constitutional: Positive: Fever, Chills HENT: No: Headaches Cardiovascular: Positive: Chest Pain or Discomfort Respiratory: Positive: Cough, No: Shortness of Breath Gastrointestinal: No: Abdominal Pain Musculoskeletal: Positive: Edema, Pain Skin: No Rash, No Change in Pigmentation Neurologic: No: Weakness, Dizziness Physical Exam Narrative GENERAL: Awake and alert, in no acute distress. SKIN: Focused skin assessment warm/dry. No wounds or signs of infection. HEAD: Atraumatic. Normocephalic. EYES: Pupils equal and round. No scleral icterus. ENT: Mucous membranes pink and moist. NECK: Trachea midline. No JVD. CARDIOVASCULAR: Regular rate and rhythm. No murmur appreciated. RESPIRATORY: No accessory muscle use. Clear to auscultation. Breath sounds equal bilaterally. GASTROINTESTINAL: Abdomen soft, non-tender, nondistended. MUSCULOSKELETAL: No obvious deformities. No clubbing. No cyanosis. Mild edema bilateral ankles. Pedal pulses intact. NEUROLOGICAL: Awake and alert. No obvious cranial nerve deficits. Motor grossly within normal limits. Normal speech. PSYCHIATRIC: Appropriate mood and affect; insight and judgment normal. Data Data Last Documented VS Vital Signs Date Time Temp Pulse Resp B/P (MAP) Pulse Ox O2 Delivery O2 Flow Rate FiO2 06/10/17 10:38 18 06/10/17 09:11 Room Air 06/10/17 08:18 98.1 76 175/83 (113) 97 Orders Orders Urinalysis - C+S If Indicated (06/10/17 08:23) Iv Access Insert/Monitor (06/10/17 09:10) Complete Blood Count With Diff (06/10/17 09:10) Comprehensive Metabolic Panel (06/10/17 09:10) Troponin I (06/10/17 09:10) B-Type Natriuretic Peptide (06/10/17 09:10) Chest, Single Ap (06/10/17 ) Us Leg Venous Doppler Bilat (06/10/17 ) Ketorolac Inj (Toradol Inj) (06/10/17 09:15) Electrocardiogram (06/10/17 ) Potassium Chloride (Kcl) (06/10/17 10:30) Labs Laboratory Tests Test 06/10/17 08:20 06/10/17 09:25 Urine Color YELLOW Urine Turbidity CLEAR Urine pH 5.5 Urine Specific [place] 1.010 Urine Protein NEG mg/dL Urine Glucose (UA) NEG mg/dL Urine Ketones NEG mg/dL Urine Occult Blood NEG Urine Nitrite NEG Urine Bilirubin NEG Urine Leukocyte Esterase NEG Urine Squamous Epithelial Cells 0-5 /hpf Microscopic Urinalysis Comment CULT NOT INDICATED White Blood Count 7.7 TH/MM3 Red Blood Count 4.50 MIL/MM3 Hemoglobin 12.2 GM/DL Hematocrit 37.5 % Mean Corpuscular Volume 83.4 FL Mean Corpuscular Hemoglobin 27.1 PG Mean Corpuscular Hemoglobin Concent 32.5 % Red Cell Distribution Width 14.8 % Platelet Count 211 TH/MM3 Mean Platelet Volume 7.8 FL Neutrophils (%) (Auto) 70.2 % Lymphocytes (%) (Auto) 17.9 % Monocytes (%) (Auto) 10.1 % Eosinophils (%) (Auto) 1.3 % Basophils (%) (Auto) 0.5 % Neutrophils # (Auto) 5.4 TH/MM3 Lymphocytes # (Auto) 1.4 TH/MM3 Monocytes # (Auto) 0.8 TH/MM3 Eosinophils # (Auto) 0.1 TH/MM3 Basophils # (Auto) 0.0 TH/MM3 CBC Comment DIFF FINAL Differential Comment Blood Urea Nitrogen 21 MG/DL Creatinine 1.80 MG/DL Random Glucose 144 MG/DL Total Protein 8.5 GM/DL Albumin 3.7 GM/DL Calcium Level 8.7 MG/DL Alkaline Phosphatase 148 U/L Aspartate Amino Transf (AST/SGOT) 20 U/L Alanine Aminotransferase (ALT/SGPT) 32 U/L Total Bilirubin 0.5 MG/DL Sodium Level 136 MEQ/L Potassium Level 3.0 MEQ/L Chloride Level 99 MEQ/L Carbon Dioxide Level 28.5 MEQ/L Anion Gap 9 MEQ/L Estimat Glomerular Filtration Rate 40 ML/MIN Troponin I LESS THAN 0.02 NG/ML B-Type Natriuretic Peptide 24 PG/ML MDM Medical Decision Making Medical Screen Exam Complete: Yes Emergency Medical Condition: Yes Medical Record Reviewed: Yes Interpretation(s) ECG shows normal sinus rhythm at 68, no ST elevation or depression, there is some T-wave flattening in V2. Differential Diagnosis Dependent edema versus DVT versus CHF Narrative Course Patient is a 56-year-old male who comes in with multiple complaints, but mostly is concerned about his legs. Exam shows mild swelling of both ankles, pedal pulses are intact. IV established, labs sent. Labs show a creatinine of 1.8 which is slightly elevated from his previous. Chest x-ray shows cardiomegaly without any edema. Ultrasound of the legs show no evidence of DVT. Last 24 hours Impressions Lower Extremity Ultrasound 06/10/17 0000 Signed Impressions: Service Date/Time: Saturday, June 10, 2017 09:56 - CONCLUSION: Negative for deep venous thrombosis. Carlos Ferraro MD FACR Chest X-Ray 06/10/17 0000 Signed Impressions: Service Date/Time: Saturday, June 10, 2017 09:52 - CONCLUSION: Cardiomegaly without pulmonary vascular engorgement. Clear lungs. Kin Cheng Jr., MD Potassium is 3.0, this was replaced. Patient informed of the results of his blood tests, advised follow-up with his primary doctor regarding his elevated creatinine. He says he feels better since coming in. He is comfortable with discharge at this time. Advised to return anytime for any worsening symptoms. Diagnosis Primary Impression: Lower extremity edema Patient Instructions: Edema (ED), General Instructions Additional Instructions: Your kidney function was slightly decreased today, your creatinine was 1.8. You need to follow-up with your doctor regarding this. Keep your legs elevated when sitting down, to help with swelling. Return to the ED as needed for any worsening symptoms. Disposition: 01 DISCHARGE HOME Condition: Stable Courtney Lee MD Jun 10, 2017 09:53
[2017-06-10 09:54] LABS: TOTAL BILIRUBIN ADULT 0.5 MG/DL (0.2-1.0); TOTAL PROTEIN 8.5 GM/DL (6.4-8.2)
[2017-06-10 09:55] LABS: CHLORIDE 99 MEQ/L (98-107); SODIUM (NA) 136 MEQ/L (136-145)
[2017-06-10 09:56] LABS: ALKALINE PHOSPHATASE 148 U/L (45-117)
[2017-06-10 10:00] LABS: BLOOD UREA NITROGEN 21 MG/DL (7-18)
--- NOTE | 2017-06-10 10:03 | RADRPT ---
EXAM DATE/TIME: 06/10/2017 09:52 [facility] COMPARISON: CHEST SINGLE AP, January 24, 2017, 3:38. INDICATIONS : High blood pressure, lower leg swelling x 2 days. Cough. MEDICAL HISTORY : Hypertension. Congestive heart failure. Hypercholesterolemia. SURGICAL HISTORY : Appendectomy. Hernia repair. Cardiac cath. ENCOUNTER: Initial ACUITY: 3 days PAIN SCORE: 0/10 LOCATION: chest FINDINGS: A single view of the chest demonstrates the lungs to be symmetrically aerated without evidence of mas s, infiltrate or effusion. Top normal heart size. Stable. No pulmonary vascular engorgement. Osseous structures are intact. CONCLUSION: Cardiomegaly without pulmonary vascular engorgement. Clear lungs. Kin Cheng Jr., MD on June 10, 2017 at 10:00 Board Certified Radiologist. This report was verified electronically.
[2017-06-10 10:06] LABS: TROPONIN I LESS THAN 0.02 NG/ML (0.02-0.05)
--- NOTE | 2017-06-10 10:18 | RADRPT ---
EXAM DATE/TIME: 06/10/2017 09:56 [facility] COMPARISON: No previous studies available for comparison. INDICATIONS : Leg pain. MEDICAL HISTORY : Cardiac disorders. CHF. Hypertension. SURGICAL HISTORY : Cardiac catheterization. Appendectomy. Hernia repair. ENCOUNTER: Initial ACUITY: 2 day PAIN SCORE: 8/10 LOCATION: Bilateral leg. TECHNIQUE: Venous ultrasound of the left and right leg was performed from the inguinal ligament to the proximal calf. Real-time, color Doppler and spectral tracing, compression and augmentation techniques were us ed. FINDINGS: RIGHT LEG: There is normal compressibility of the deep venous system from the inguinal region to the proximal ca lf. No echogenic clot is seen in the lumen of the common femoral, femoral, popliteal, and posterior tibial veins. There is a normal response of the venous system to proximal and distal augmentation an d respiration. LEFT LEG: There is normal compressibility of the deep venous system from the inguinal region to the proximal ca lf. No echogenic clot is seen in the lumen of the common femoral, femoral, popliteal, and posterior tibial veins. There is a normal response of the venous system to proximal and distal augmentation an d respiration. CONCLUSION: Negative for deep venous thrombosis. Carlos Ferraro MD FACR on June 10, 2017 at 10:15 Board Certified Radiologist. This report was verified electronically.
[2017-06-10] MEDS ORDERED: POTASSIUM CHLORIDE 10 MEQ CONTROLLED RELEASE TAB PO ONE (10:30)
[2017-06-10 10:38] VITALS: RESP 18
--- NOTE | 2017-06-10 19:58 | EKG ---
Date Performed: 06/10/2017 Time Performed: 10:29:01 PTAGE: 56 years EKG: Sinus rhythm MARKED LEFT AXIS DEVIATION PATTERN CONSISTENT WITH PULMONARY DISEASE ABNORMAL ECG PREVIOUS TRACING : 01/24/2017 03.40 Since the prior tracing, there has been no significant yap DOCTOR: Quincy Silverio Interpretating Date/Time 06/10/2017 19:57:42
[2017-06-11] MEDS ORDERED: HYDR-4107 PO (09:38)
[2017-06-11] MEDS ORDERED: WALKER/ADULT/FO1 MIS (09:54)
== END 2017-06-10 11:05 | disposition home or self-care (01) ==
LOC: PHED 08:11
DX: R60.0 Localized edema (principal); R94.31 Abnormal electrocardiogram [ECG] [EKG]; F32.9 Major depressive disorder, single episode, unspecified; I10 Essential (primary) hypertension; E78.00 Pure hypercholesterolemia, unspecified; I50.9 Heart failure, unspecified
CPT/HCPCS: 71045; 80053; 81001; 83880; 84484; 85025; 93005; 93970; 96374; 99285; J1885

== ENCOUNTER 2017-06-11 08:46 | Emergency (ER) | payer MEDICAID ==
[~2017-06-11] VITALS: Ht 170.2 cm; Wt 116.0 kg
[~2017-06-11 08:46] MED LIST changes: +IBUP1TAB5 PO
[2017-06-11 08:51] VITALS: BP 134/63; PULSE 69; RESP 16; TEMP 97.9; O2SAT 96
[2017-06-11] MEDS ORDERED: HYDR-4107 PO (09:38)
--- NOTE | 2017-06-11 09:38 | PD ---
HPI Chief Complaint: Musculoskeletal Complaint Time Seen by Provider: 09:15 Travel History International Travel<30 days: No Contact w/Intl Traveler<30days: No Traveled to known affect area: No History of Present Illness HPI 56-year-old male presents to the emergency room for the second time since yesterday for evaluation of bilateral ankle pain, left worse than right that is been ongoing for the past 3 days. Patient denies any trauma or injury. He was here yesterday for the same and had a complete workup that was essentially negative. He had elevated creatinine and was told to follow-up with his primary care physician. States he has an appointment in 1 month. He has not taken anything for pain. States pain is severe and goes back and forth between his bilateral medial ankles. Worse with ambulation and when he moves it or touches it. He had similar pain a few years ago and had an extensive workup in [facility] and they told him they could not find anything wrong. Patient is highly anxious and concerned about his blood pressure causing the swelling. PFSH Past Medical History Depression: Yes Heart Rhythm Problems: No Cardiac Catheterization: Yes Cardiovascular Problems: Yes (htn on meds) High Cholesterol: Yes Chest Pain: Yes Congestive Heart Failure: Yes Diabetes: No Diminished Hearing: No Glaucoma: Yes Hypertension: Yes Respiratory: Yes Past Surgical History Abdominal Surgery: Yes (HERNIA REPAIR) Appendectomy: Yes Coronary Artery Bypass Graft: No Social History Alcohol Use: No Tobacco Use: No Substance Use: No Allergies-Medications (Allergen,Severity, Reaction): Coded Allergies: No Known Allergies (Unverified Adverse Reaction, Unknown, 06/11/17) Reported Meds & Prescriptions Reported Meds & Active Scripts Active Reported Ibuprofen 400 Mg Tab 400 Mg PO DIRECTED Losartan (Losartan Potassium) 100 Mg Tab 100 Mg PO DAILY Review of Systems Except as stated in HPI: all other systems reviewed are Neg Physical Exam Narrative GENERAL: Well-nourished, well-developed male in no acute distress. Afebrile. SKIN: Focused skin assessment warm/dry. Mild ecchymosis of the left medial ankle. HEAD: Normocephalic. EYES: No scleral icterus. No injection or drainage. NECK: Supple, trachea midline. No JVD or lymphadenopathy. CARDIOVASCULAR: Regular rate and rhythm without murmurs, gallops, or rubs. RESPIRATORY: Breath sounds equal bilaterally. No accessory muscle use. MUSCULOSKELETAL: No cyanosis. 1+ nonpitting edema bilaterally. Data Data Last Documented VS Vital Signs Date Time Temp Pulse Resp B/P (MAP) Pulse Ox O2 Delivery O2 Flow Rate FiO2 06/11/17 08:51 97.9 69 16 134/63 (86) 96 MDM Medical Decision Making Medical Screen Exam Complete: Yes Emergency Medical Condition: Yes Medical Record Reviewed: Yes Differential Diagnosis Gouty arthritis, DVT, muscle strain, edema Narrative Course 56-year-old male presents to the emergency room for continued bilateral ankle pain and swelling. Pain has been ongoing for 3 days. Alternates between both ankles. Severe in quality. Patient came to ED yesterday for the same and had complete negative workup including negative ultrasound, BNP of 24, and essentially normal liver enzymes. His creatinine was slightly elevated at 1.8 for which he was told to follow-up with his primary care physician. UA is unremarkable. Patient is highly anxious and concerned that his blood pressure is causing the edema. Blood pressure is 134/63 today. Physical exam is unremarkable. There is nonpitting 1+ edema bilaterally. Moderate tenderness to palpation especially over the medial ankle. There is mild ecchymosis surrounding this. Patient has reported history of gout and may be having a gout attack or venous stasis. He will be discharged with short course of Lortab and told to follow-up with a primary care physician or return for worsening symptoms. He understands and agrees to plan. Diagnosis Primary Impression: Lower extremity edema Referrals: Primary Care Physician Additional Instructions: Rest and drink plenty of fluids. Take Tylenol as directed, as needed for pain. Lortab as directed, as needed for pain. Use compression stockings to reduce edema and pain. Elevate legs above heart to reduce swelling and pain. Follow-up with a primary care physician. Return to the emergency room for worsening symptoms. Disposition: 01 DISCHARGE HOME Condition: Stable Shiloh Newberry Jun 11, 2017 09:37
[2017-06-11] MEDS ORDERED: WALKER/ADULT/FO1 MIS (09:54)
[2017-06-11] MEDS ORDERED: ACETAMINOPHEN/HYDROcodone 325 MG/5 MG TAB PO ONE (10:00)
== END 2017-06-11 10:44 | disposition home or self-care (01) ==
LOC: PHEFT 08:46
DX: R60.0 Localized edema (principal); I11.0 Hypertensive heart disease with heart failure; I50.9 Heart failure, unspecified; E78.00 Pure hypercholesterolemia, unspecified; M10.9 Gout, unspecified; F32.9 Major depressive disorder, single episode, unspecified; Z79.899 Other long term (current) drug therapy
CPT/HCPCS: 99283